=== PATIENT | male | born 2000 | race Caucasian/White ===

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

== ENCOUNTER 2020-01-12 17:26 | Emergency (ER) | payer OTHER ==
[2020-01-12] MEDS ORDERED: Lidocaine 1% 30 ML SDV INJECT ONE (17:58)
[2020-01-12] MEDS ORDERED: Bacitracin Oint 1 GM U/D Packet TOP ONE (17:58)
[2020-01-12] MEDS ORDERED: Diphtheria,Pertussis(Acell),Tetanus Vaccine 0.5 ML SDV IM ONE (17:58)
[2020-01-12 18:10] VITALS: BP 140/65; PULSE 68
--- NOTE | 2020-01-12 18:16 | EDM.PDOC ---
Scribed by Denae Harp 01/12/20 [id number] for Paolo Sellers MD ED HPI GENERAL MEDICAL PROBLEM - General Chief Complaint: Laceration Stated Complaint: RIGHT CUT PAD OF THUMB AREA. Time Seen by Provider: 01/12/20 17:54 Source of Information: Reports: Patient, RN, RN Notes Reviewed History Limitations: Reports: No Limitations - History of Present Illness INITIAL COMMENTS - FREE TEXT/NARRATIVE: Patient presents to ER by POV stating he was laying carpet and lacerated right hand thenar eminence. The bleeding has stopped. 0.5 inch laceration. TDAP due now. Denies any other injury. Onset: Today Duration: Constant Severity: Mild Improves with: Reports: None Worsens with: Reports: None Associated Symptoms: Reports: No Other Symptoms - Related Data Allergies Allergy/AdvReac Type Severity Reaction Status Date / Time No Known Allergies Allergy Verified 01/12/20 18:10 Home Meds: Home Meds . [No Known Home Meds] 11/10/14 [History] Past Medical History - Past Health History Medical/Surgical History: Denies Medical/Surgical History Social & Family History - Caffeine Use Caffeine Use: Reports: None ED ROS GENERAL - Review of Systems Review Of Systems: Comprehensive ROS is negative, except as noted in HPI. ED EXAM, SKIN/RASH Exam: See Below Exam Limited By: No Limitations General Appearance: Alert, WD/WN, No Apparent Distress Head: Atraumatic, Normocephalic Respiratory/Chest: No Respiratory Distress Cardiovascular: Normal Peripheral Pulses Extremities: Normal Range of Motion, Normal Capillary Refill, Other (1.5cm "L" shaped laceration to right thenar eminence to depth of subcutaneous tissue). No : Joint Swelling Neurological: Alert, No Motor/Sensory Deficits Psychiatric: Normal Mood Skin: Warm, Dry ED SKIN PROCEDURES - Laceration/Wound Repair Right Hand Appearance: Subcutaneous, Irregular Distal NVT: Neuro & Vascular Intact, No Tendon Injury Anesthetic Type: Local Local Anesthesia - Lidocaine (Xylocaine): 1% Plain Local Anesthetic Volume: 4cc Skin Prep: Chlorhexidine (Hibiciens), Saline, Sterile Drape Saline Irrigation (cc's): 500 Exploration/Debridement/Repair: Wound Explored, In a Bloodless Field, Explored to Base, Minimal Debridement, Minimally Undermined Closed with: Sutures Lac/Wound length In cm: 1.5 Suture Size: 4-0 # of Sutures: 4 Suture Type: Nylon, Interrupted Drain Placement: No Sterile Dressing Applied: Nurse Tetanus Status Addressed: Yes Complications: No Course - Vital Signs Last Recorded V/S: Last Vital Signs Temp 97.8 F 01/12/20 17:58 Pulse 68 01/12/20 17:58 Resp 16 01/12/20 17:58 BP 140/65 01/12/20 17:58 Pulse Ox 98 01/12/20 17:58 - Orders/Labs/Meds Orders: Active Orders 24 hr Category Date Time Status Vaccines to be Administered [RC] PER UNIT ROUTINE Care 01/12/20 17:58 Active Meds: Medications Discontinued Medications Generic Name Dose Route Start Last Admin Trade Name Heather PRN Reason Stop Dose Admin Bacitracin 1 dose 01/12/20 17:58 Bacitracin Oint 1 Gm TOP 01/12/20 17:59 ONETIME ONE Diphtheria/Tetanus/Acell Pertussis 0.5 ml 01/12/20 17:58 Adacel IM 01/12/20 17:59 .ONCE ONE Lidocaine HCl 30 ml 01/12/20 17:58 Xylocaine-Mpf 1% INJECT 01/12/20 17:59 ONETIME ONE Departure - Departure Time of Disposition: 18:15 Disposition: Home, Self-Care 01 Condition: Good Clinical Impression: Laceration of right hand without foreign body Qualifiers: Encounter type: initial encounter Qualified Code(s): S61.411A - Laceration without foreign body of right hand, initial encounter - Discharge Information *PRESCRIPTION DRUG MONITORING PROGRAM REVIEWED*: Not Applicable *COPY OF PRESCRIPTION DRUG MONITORING REPORT IN PATIENT REGINA: Not Applicable Instructions: Laceration Care, Adult, [id number] Forms: ED Department Discharge Additional Instructions: Keep area clean and dry. Suture removal in 10 days. Return to ER if any problems develop. Sepsis Event Note - Focused Exam Vital Signs: Vital Signs Temp Pulse Resp BP Pulse Ox 01/12/20 17:58 97.8 F 68 16 140/65 98 Date Exam was Performed: 01/12/20 Time Exam was Performed: 18:13 - My Orders Last 24 Hours: My Active Orders 01/12/20 17:58 Vaccines to be Administered [RC] PER UNIT ROUTINE - Assessment/Plan Last 24 Hours: My Active Orders 01/12/20 17:58 Vaccines to be Administered [RC] PER UNIT ROUTINE I have read and agree with the documentation that has been completed regarding this visit. By signing this record, I attest that the documentation was completed in my physical presence and is an accurate record of the encounter.
== END 2020-01-12 18:24 | disposition home or self-care (01) ==
LOC: DL.ED 17:26
DX: S61.411A Laceration without foreign body of right hand, initial encounter (principal); Z23 Encounter for immunization; W26.8XXA Contact with other sharp object(s), not elsewhere classified, initial encounter
CPT/HCPCS: 12001; 90471; 90715; 99282; J2001